=== PATIENT | male | born 1985 | race Caucasian/White ===

== ENCOUNTER 2025-01-13 15:12 | Emergency (ER) | payer OTHER, SELFPAY ==
[2025-01-13 15:25] VITALS: BP 150/97
[2025-01-13 15:44] LABS: Hematocrit 41.1 % (39.0-52.0); Hemoglobin 14.6 g/dL (13.0-18.0); Mean Corp Hgb Conc. 35.5 g/dL (33.0-37.0); Mean Corpuscular Volume 83.0 fL (80.0-94.0); Nucleated Red Blood Cells % 0 % (-); Platelet Count 249 10^3/uL (130-400); Red Cell Dist. Width 12.1 % (11.5-14.5)
[2025-01-13 16:03] LABS: ALT (SGPT) 32 U/L (0-50); AST (SGOT) 25 U/L (17-59); Albumin 4.8 g/dl (3.5-5.0); Alkaline Phosphatase 54 U/L (38-126); Blood Urea Nitrogen 14 mg/dl (9-20); Calcium 9.5 mg/dl (8.4-10.2); Carbon Dioxide 29 mmol/L (22-30); Chloride 106 mmol/L (98-107); Glucose 80 mg/dl (70-99); Lipase 85 U/L (23-300); Potassium 4.7 mmol/L (3.5-5.1); Sodium 141 mmol/L (135-145); Total Protein 7.8 g/dl (6.3-8.2); eGFR > 60.00
--- NOTE | 2025-01-13 19:03 | ED.GENMED ---
History of Present Illness
General
Chief Complaint: Abnormal Lab Value
Time Seen by Provider: 01/13/25 18:38
History of Present Illness
History of Present Illness:
39-year-old male presents to the emergency department due to an abnormal outpatient lab. States he saw his doctor for a routine checkup on Thursday and had labs obtained, was called this morning informing him he had 'abnormal pancreatic test'. He
does not know any further specifics of this and does not have access to his outpatient lab portal for my review. He denies any complaints, specifically denies abdominal pain, nausea, vomiting, fevers, or night sweats. No weight loss.
Review of Systems
Review of Systems
Allergies reviewed?: Yes
All Other Systems: ROS reviewed and negative except as documented in HPI and ROS
Phy Exam
Physical Exam
Physical Exam:
GEN: Well appearing, NAD, WDWN
HEENT: Oral mucosa moist, no scleral icterus
Cardiac: Regular rate
Lung: No respiratory distress, no tachypnea
MSK: No gross deformity or injuries
Skin: Good color, no pallor or jaundice, no rashes
Neuro: AO x3, moves all extremities freely
Psych: Calm, cooperative
Course
Orders/Labs/Results
Orders:
Orders
01/13/25 15:35
CBC/With Diff [Complete Blood Count/With Diff] Urgent
CMP [Comprehensive Metabolic Panel] Urgent
Lipase Urgent
01/13/25 15:35
01/13/25 15:35
Vital Signs
Initial and Last Documented VS:
Initial Vital Signs
Temp Pulse Resp BP Pulse Ox
98.0 F 102 15 150/97 98
01/13/25 15:25 01/13/25 15:25 01/13/25 15:25 01/13/25 15:25 01/13/25 15:25
Last Documented Vital Signs
Temp Pulse Resp BP Pulse Ox
98.0 F 102 15 150/97 98
01/13/25 15:25 01/13/25 15:25 01/13/25 15:25 01/13/25 15:25 01/13/25 19:05
MDM/Problems Addressed
MDM/Problems Addressed:
Labs in the ED are all normal. Unfortunately was unable to identify what lab was reportedly abnormal as an outpatient however he has no symptoms at this time thus I see no indication for any further workup, recommend he follow-up with his primary
physician and review labs that were obtained by our emergency department
*Pulse Oximetry
SaO2: 98
Oxygen Mode of Delivery: Room air
Patient hypoxic: no
*Critical Care Note
Total Time (30-74mins, 75-104mins- exclusive of procedures): Not Applicable
Update Note
Update Note:
After patient was able to access his [facility] portal it was determined that he abnormal lab was markedly elevated triglycerides at 2300. He has no evidence of pancreatitis at this time. Will be advised to follow-up with primary care for management
of this, encouraged him to start a vitamin E supplement and provided with dietary information for lowering triglycerides
ED Attending Note
-
Portions of this chart may have been created with voice recognition software.� Occasional wrong word or��sound alike� substitutions may have occurred due to the inherent limitations of voice recognition software.
Discharge Plan
Departure
Patient Disposition: Home (Routine Discharge)
Date of Disposition: 01/13/25
Time of Disposition: 19:04
Patient with high blood pressure during this ER visit?: No
Discharge Problem:
elevated triglycerides
Instructions: High triglycerides
Activity Restrictions/Additional Instructions:
Follow up with your primary doctor to discuss the lab tests
I have provided you with a copy of your lab results for review with your doctor
Begin taking Vitamin E supplements
Discuss medications with your doctor
Interventions
Interventions:
*Risk Screen - Suicide Last Done: 01/13/25 15:25
*General Assessment Last Done: 01/13/25 15:25
*Neglect/Abuse Screening Last Done: 01/13/25 15:25
*ED COVID-19 Vaccine History Last Done: 01/13/25 15:25
*ED Influenza Vaccine History Last Done: 01/13/25 15:25
*Nursing Disposition Last Done: 01/13/25 19:24
Discharge Date and Time
Discharge Date/Time: 01/13/25 19:24
Print Language: DIVEHI
--- NOTE | 2025-01-13 19:20 | EDRN ---
Patient was able to access his previous labs. triglicerides were >2000. Notified Olivier SWANN of the abnormal outpatient lab. Will not DC at this time.
== END 2025-01-13 19:24 | disposition home or self-care (01) ==
LOC: EMR 15:12
PROVIDERS: Emergency Medicine; EMERGENCY PHYSICIAN Emergency Medicine; FAMILY PHYSICIAN Nurse Practitioner
DX: E78.1 Pure hyperglyceridemia (principal)
CPT/HCPCS: 99283; 80053; 83690; 85025